=== PATIENT | male | born 1960 | race Caucasian/White ===

== ENCOUNTER 2017-08-10 22:11 | Observation (INO) ==
--- NOTE | 2017-08-10 22:31 | Emergency Department Note ---
Disposition Clinical Impression: Paroxysmal ventricular tachycardia, Sinus tachycardia, Frequent PVCs, Palpitation Disposition: Still a Patient Condition: Fair Forms: ED Satisfaction Letter Arrhythmia/Palpitations HPI - General Chief Complaint: ED Arrhythmia/Palpitations Stated Complaint: "A.Fib" Time Seen by Provider: 08/10/17 22:19 Source: patient, family Limitations: no limitations Nursing Notes Reviewed: Yes Vital Signs Reviewed: Yes - History of Present Illness HPI Narrative: Mr. Ruiz, 57-year-old male, presents from home for evaluation of palpitations. Onset 3 PM today and intermittent. Nothing noted to bring them on or make them resolve. He is followed by the [facility], has history of A. Fib and is s/p ablation, has history of stable V. Tach. Currently on amlodipine 5mg qdaily. PMH: Atrial fibrillation status post ablation. Paroxysmal V. tach. History colon cancer status post chemotherapy (last chemotherapy greater than 1 year ago ). ROS: Positive: As above Negative: Patient denies chest pain or dyspnea. No nausea, vomiting, diaphoresis. - Related Data Allergies Allergy/AdvReac Type Severity Reaction Status Date / Time No Known Allergies Allergy Verified 08/10/17 22:12 All systems ED: reviewed and negative except as stated. Review of Systems: As Per HPI Past Medical History - Past Medical History Medical history: Reports: atrial fibrillation, cancer Psychiatric history: Reports: no psych history - Social History Smoking Status: Never smoker Alcohol use: Reports: rarely Drug use: Reports: none Physical Exam Vital Signs Reviewed General: Patient is alert, oriented, and in no acute distress. HEENT: No facial asymmetry. Head is normocephalic and atraumatic. PERRLA, EOMI. Cardiovascular: Heart regular rate and rhythm without clicks, rubs, gallops, or murmurs. No JVD. PMI nondisplaced. Respiratory: Symmetric chest rise with good respiratory effort. Bilateral breath sounds are clear without wheezing, crackles, or rhonchi. Abdomen: Obese. Bowel sounds present normoactive x-4 quadrants. Abdomen is soft, nondistended, and nontender. No organomegaly noted. Psych: Patient's affect is appropriate for situation. - General Limitations: no limitations General appearance: alert Course Course Narrative: Patient is alert, oriented, conversive. During this time, he is in monomorphic ventricular tachycardia and his only symptom is palpitations. This will spontaneously resolve into sinus tachycardia with PVC. I discussed the patient with on-call cardiology, Dr. Shultz. During our conversation, patient had only recently been resumed and initial 12-lead EKG was not available for our discussion. Given this limited information, she recommends beta yehuda therapy at this time with admission to hospitalist and cardiology following. After my conversation with Dr. Shultz, we were able to finally capture monomorphic ventricular tachycardia on 12-lead EKG with subsequent spontaneous conversion to sinus tachycardia. Will provide IV labetalol. Patient signed out for continued evaluation to my attending, Dr. Abbott. Please see his note for continued evaluation and management. Vital Signs Temperature 98.0 F 08/10/17 22:12 Pulse Rate 115 08/10/17 22:12 Respiratory Rate 16 08/10/17 22:12 Blood Pressure 146/96 08/10/17 22:12 O2 Sat by Pulse Oximetry 98 08/10/17 22:12 Temperature 98.0 F 08/10/17 22:12 Pulse Rate 89 08/10/17 23:24 Respiratory Rate 18 08/10/17 23:24 Blood Pressure 158/117 08/10/17 23:24 O2 Sat by Pulse Oximetry 97 08/10/17 23:24 Oxygen Delivery Oxygen Delivery Nasal Cannula Arrhythmia/Palpitations - Medical Records Medical records reviewed: Yes I reviewed the patient's medical records. - Lab Data Lab results reviewed: Yes I reviewed the patient's lab results. Result diagrams: 08/10/17 22:24 08/10/17 22:24 Lab Results 08/10/17 08/10/17 08/10/17 Range/Units 22:24 22:24 22:24 WBC 11.0 (4.3-11.1) K/mcL RBC 5.34 (4.19-5.50) M/mcL Hgb 15.9 (12.9-16.9) g/dL Hct 47.8 (37.5-50.1) % MCV 89.5 (83.0-100.0) fL MCH 29.8 (28.0-33.3) pg MCHC 33.3 (31.6-35.5) g/dL RDW 13.2 (11.5-14.5) % Plt Count 293 (140-400) K/mcL MPV 10.6 (9.4-12.4) fL Immature Gran % 0.5 (0-4) % Seg Neutrophils % 40.8 % Lymphocytes % 45.8 % Monocytes % 9.1 % Eosinophils % 3.2 % Basophils % 0.6 % Neutrophils # 4.5 (1.6-8.9) K/mcL Lymphocytes # 5.1 H (0.6-4.6) K/mcL Monocytes # 1.0 (0.0-1.3) K/mcL Eosinophils # 0.4 (0.0-0.6) K/mcL Basophils # 0.1 (0.0-0.2) K/mcL PT 9.6 (9.4-12.1) Seconds INR 0.9 APTT 29.5 (26.0-36.0) Seconds Sodium 140 (136-145) mEq/L Potassium 3.6 (3.5-5.1) mEq/L Chloride 105 (98-107) mEq/L Carbon Dioxide 27 (23-29) mEq/L BUN 20 (6-20) mg/dL Creatinine 1.40 H (0.70-1.30) mg/dL Est GFR ( Amer) > 60 (> 60) Est GFR (Non-Af Amer) 52 L (> 60) BUN/Creatinine Ratio 14 (6-26) Glucose 139 H (70-105) mg/dL Calculated Osmolality 295 (280-300) Calcium 9.8 (8.6-10.3) mg/dL Phosphorus 3.6 (2.7-4.5) mg/dL Magnesium 2.2 (1.6-2.6) mg/dL Troponin I (< 0.04) ng/mL TSH 3.250 (0.340-5.600) mcIU/mL 08/10/17 Range/Units 22:24 WBC (4.3-11.1) K/mcL RBC (4.19-5.50) M/mcL Hgb (12.9-16.9) g/dL Hct (37.5-50.1) % MCV (83.0-100.0) fL MCH (28.0-33.3) pg MCHC (31.6-35.5) g/dL RDW (11.5-14.5) % Plt Count (140-400) K/mcL MPV (9.4-12.4) fL Immature Gran % (0-4) % Seg Neutrophils % % Lymphocytes % % Monocytes % % Eosinophils % % Basophils % % Neutrophils # (1.6-8.9) K/mcL Lymphocytes # (0.6-4.6) K/mcL Monocytes # (0.0-1.3) K/mcL Eosinophils # (0.0-0.6) K/mcL Basophils # (0.0-0.2) K/mcL PT (9.4-12.1) Seconds INR APTT (26.0-36.0) Seconds Sodium (136-145) mEq/L Potassium (3.5-5.1) mEq/L Chloride (98-107) mEq/L Carbon Dioxide (23-29) mEq/L BUN (6-20) mg/dL Creatinine (0.70-1.30) mg/dL Est GFR ( Amer) (> 60) Est GFR (Non-Af Amer) (> 60) BUN/Creatinine Ratio (6-26) Glucose (70-105) mg/dL Calculated Osmolality (280-300) Calcium (8.6-10.3) mg/dL Phosphorus (2.7-4.5) mg/dL Magnesium (1.6-2.6) mg/dL Troponin I < 0.03 (< 0.04) ng/mL TSH (0.340-5.600) mcIU/mL - Radiology Data Radiology results reviewed: Yes I reviewed the patient's radiology results. - EKG Data EKG attestation: Yes I reviewed and interpreted this EKG. EKG results narrative: EKG #1 EKG dated 08/10/17 at 22:28 interpreted as sinus tachycardia with frequent monomorphic PVC, rate of 109. Normal intervals ND 175, QRS 129, QT/QTC 339/ 403. Normal axis. No specific ST-T changes. Compared to previous EKG dated which shows sinus rhythm with rare PVCs; no acute ischemic changes of comparison. EKG #2 EKG dated 08/10/2017 at 22:38 interpreted as sinus rhythm with a rate of 110. Right bundle branch block. Left axis. T-wave inversions in precordial leads not present. EKG dated 09/05/2005. Telemetry strip #1 dated 10 Aug 2017 at 22:23 interpreted as sinus rhythm evolving into a 5 second run of monomorphic V. tach followed by sinus rhythm with PVC. During this time, the patient was awake, alert, and conversant. He had no chest pain but did experience palpitations. Telemetry strip #2 dated 10 Aug 2017 at 22:27 shows the 20 second run of monomorphic V. tach. During this time, the patient was awake, alert, and conversant. He had no chest pain but did experience palpitations. EKG #3 EKG dated 08/10/17 at 23:14 interpreted as monomorphic ventricular tachycardia. Patient is awake, alert, conversive; stable. EKG #4 EKG dated 08/10/17 at 23:15 interpreted as sinus tachycardia with a rate of 118 , right bundle branch block, right axis, T-wave inversion in precordial leads. Critical Care Time Critical Care Time: Yes Total Critical Care Time: 45 Attestation: Critical care performed: Time is exclusive of separately billable procedures. Time includes: direct patient care, patient reassessment, coordination of patient care, interpretation of data (laboratory data, radiology data, and respiratory data), review of patient's medical records, medical consultation and documentation of patient care. Procedures included in critical care time: Procedures excluded from critical care time: Attestation Statement - Attestation Attestation: I, Jonah Abbott DO, examined this patient [id number] and my medical decision-making was reviewed with Dr. Reinaldo Doan, Resident Physician. I agree with the documented findings, disposition and treatment plan as described except to the extent set forth below. Please see my progress notes for details. 57-year-old male seen at the time of arrival. Patient presents for cardiac arrhythmia. Has a history of A. fib and ventricular tachycardia that required ablation in the past. His most recent ablation was in 2007. He is currently on amlodipine and losartan. Patient denies any change in medications. Denies any recent illnesses. Denies any chest pain shortness of breath headache vision changes nausea vomiting or diarrhea. Denies any trauma or injury. Patient had onset of symptoms yesterday and intermittent persistent. Yesterday there is an intermittent headache over the last 3 hours she has felt to more consistently. On presentation here patient did have what appeared to be A. fib tendon several episodes of prolonged runs of ventricular tachycardia. Patient was alert oriented and speaking in full sentences with a normal blood pressure and pulse ox throughout all divisions of V. tach. He said even while in V. tach , that he did not want to be shocked and wanted it out because he did feel it go in and out. Immediately cardiology dr. shultz was contacted. He did not have any confirmatory labs or imaging modalities at that point. Initial EKG collected showing sinus rhythm with PVCs. Information was lacking at the time of the conversation but only concern consideration for the consultation initially was starting of medication to help with symptom control that would not inhibit any further evaluation by cardiology interventionalists. Examination that time as a beta yehuda. Labetalol IV drip was started. Patient had screening laboratory workup including magnesium and phosphorus troponin EKG and persistent S. Several EKGs were collected throughout the treatment course. Initial EKG showed a sinus tachycardia with PVCs. Second EKG showed sinus rhythm with possibility of a flutter but otherwise regular rhythm at that point. Patient then had nonsustained run of V. tach this caught on EKG at that time. Patient converted spontaneously back into sinus tachycardia with a rate of 114. Labetalol infusion starting at this time. Labs are been reviewed patient is otherwise stable. Vital signs remained stable throughout the course of care and patient has not had any acute change in mentation or vital signs. Patient will be admitted for definitive management and evaluation will see Dr. workup and imaging modalities are resulted. She detailed documentation of physical exam, medical intervention, medical decision-making and disposition and the resident physician's note [id number] Patient's heart rate is down to ED at this time after the beta yehuda drip was started. Patient's symptoms may be consistent this point with SVT with aberrancy versus intermittent V. tach and atrial flutter or A. fib flutter. Patient family informed. Patient has remained symptom-free here in the emergency room. Labs were reviewed in detail. Hospitalist Dr. hensley and I reviewed the patient's presentation symptoms as well as a consultation with cardiology in detail. No other recommendations are she is now this time. Patient will be admitted for definitive management.
[2017-08-10] MEDS ORDERED: Aspirin 81 MG TAB.CHEW PO STA (22:37)
[2017-08-10 22:39] LABS: Basophils # 0.1 K/mcL (0.0-0.2); Basophils % 0.6 %; Eosinophils # 0.4 K/mcL (0.0-0.6); Eosinophils % 3.2 %; Hematocrit 47.8 % (37.5-50.1); Hemoglobin 15.9 g/dL (12.9-16.9); Immature Granulocytes % 0.5 % (0-4); Lymphocytes # 5.1 K/mcL (0.6-4.6); Lymphocytes % 45.8 %; Mean Corpuscular HGB Conc 33.3 g/dL (31.6-35.5); Mean Corpuscular Hemoglobin 29.8 pg (28.0-33.3); Mean Corpuscular Volume 89.5 fL (83.0-100.0); Mean Platelet Volume 10.6 fL (9.4-12.4); Monocytes % 9.1 %; Neutrophils # 4.5 K/mcL (1.6-8.9); Platelet Count 293 K/mcL (140-400); Red Blood Count 5.34 M/mcL (4.19-5.50); Red Cell Distribution Width 13.2 % (11.5-14.5); Segmented Neutrophils % 40.8 %
[2017-08-10 22:44] LABS: INR 0.9; Prothrombin Time 9.6 Seconds (9.4-12.1)
[2017-08-10] MEDS ORDERED: Labetalol 200 MG in D5% in Water 250 ML IVC SCH (22:45)
[2017-08-10 22:47] LABS: Activated Partial Thrombo Time 29.5 Seconds (26.0-36.0)
[2017-08-10 22:52] LABS: BUN/Creatinine Ratio 14 (6-26); Blood Urea Nitrogen 20 mg/dL (6-20); Calcium 9.8 mg/dL (8.6-10.3); Carbon Dioxide 27 mEq/L (23-29); Chloride 105 mEq/L (98-107); Glucose 139 mg/dL (70-105); Osmolality,Calculated 295 (280-300); Potassium 3.6 mEq/L (3.5-5.1); Sodium 140 mEq/L (136-145); eGFR For African Americans > 60 (> 60); eGFR For Non-African Americans 52 (> 60)
[2017-08-10 23:12] LABS: Magnesium 2.2 mg/dL (1.6-2.6); Phosphorous 3.6 mg/dL (2.7-4.5)
[2017-08-10 23:30] LABS: Bilirubin,Urine Negative (Negative); Blood,Urine Negative (Negative); Clarity,Urine Clear (Clear); Color,Urine Yellow (Yellow); Glucose,Urine (UA) 100 mg/dL (Normal); Ketones,Urine Negative (Negative); Leukocyte Esterase,Urine Negative (Negative); Nitrite,Urine Negative (Negative); PH,Urine 6.5 pH Units (5.0-8.0); Protein,Urine Negative (Neg-Trace); Specific Gravity,Urine 1.019 (1.010-1.025); Urobilinogen,Urine Normal (Normal)
[2017-08-11] MEDS ORDERED: Naloxone 0.4 MG/ML INJ IVP PRN (01:16)
[2017-08-11] MEDS ORDERED: Acetaminophen 325 MG TABLET PO PRN (01:16)
[2017-08-11] MEDS ORDERED: *HR* Midazolam HCl 5 MG/5 ML VIAL IVP ONE (01:22)
--- NOTE | 2017-08-11 03:32 | Internal Med History&Physical ---
Date of Encounter: 08/11/17 Time of Encounter: 00:30 Assessment and Plan (1) HTN (hypertension) Current visit: Yes Status: Acute Cont home meds. Closely monitor BP. Qualifiers: Hypertension type: essential hypertension Qualified Code(s): I10 - Essential (primary) hypertension (2) A-fib Current visit: Yes Status: Acute Pt said he has A Fib and s/p ablation. Not sure what home meds for A Fib, his will bring med list to us soon. Qualifiers: Atrial fibrillation type: paroxysmal Qualified Code(s): I48.0 - Paroxysmal atrial fibrillation (3) DVT prophylaxis Current visit: Yes Status: Acute Heparin SC (4) Paroxysmal ventricular tachycardia Current visit: Yes Status: Acute Not sure if it is new. Converted to sinus now. - Place pt on continuous cardiac monitoring. - Mg and TSH WNL. - Labetalol drip as needed per cardio - Consult cardiology in AM. (5) Frequent PVCs Current visit: Yes Status: Acute Keep beta blockers. (6) Palpitation Current visit: Yes Status: Acute Probably due to VT. Management as above. Internal Medicine - H&P: HPI Chief complaint: Palpitation Admitted From: Home Plans for Post Hospital Care: Home History of present illness: Mr. Ruiz is a 57 year old male with Hx of PAF s/p ablation present to ER for palpitation. Pt said he feels palpitation this evening after he shovelled snow from drive way. He knows he has A Fib and had similiar symptoms previously. Usually some rest will brings him back to normal. He has rest for a while but symptoms not go away. He came to ER for further management. Pt denies chest pain. Has mild SOB, had light headed and almost pass out. Denies nausea. In ER, EKG shows short V tach. Cardio consult called and recommended to place pt on labetalol drip. Pt's HR changed to and remains at sinus after treatment. 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 Pt is not clear if he has hx of VT. Past Med Surg Social Fam HX - Past Medical History Medical history: atrial fibrillation, cancer, hypertension Psychiatric history: no psych history - Past Surgical History Surgical History: colectomy - Social History Smoking Status: Never smoker Smokeless Tobacco Status: No Alcohol use: occasionally Drug use: none - Family History Father Living Status: Hx Family Cardiac Disorders: Yes ([place]) Brother Hx Family Cardiac Disorders: Yes (Heart valve replacement) Sister Hx Family Cardiac Disorders: Yes (AFib) Internal Medicine - H&P: Meds Losartan Potassium [Cozaar] 100 mg PO DAILY 08/11/17 [History] amLODIPine [Norvasc] 5 mg PO DAILY 08/11/17 [History] 3 Allergy/AdvReac Type Severity Reaction Status Date / Time No Known Allergies Allergy Verified 08/10/17 22:12 All Systems PM: A 10-system review of systems was performed and is negative for pertinent findings except as documented above in the HPI. - Constitutional Vitals: Temp Pulse Resp BP Pulse Ox 98.1 F 65 16 123/81 98 08/11/17 02:38 08/11/17 02:38 08/11/17 02:38 08/11/17 02:38 08/11/17 02:38 General appearance: Present: A&O X 3, no acute distress, answers questions appropriately - Head Head exam: Present: atraumatic, normocephalic - Eye Eye exam: Present: PERRL, conjuntiva pink, sclera anicteric Pupils: Present: PERRL - Neck Neck exam general surgery: Present: supple, trachea midline. Absent: lymphadenopathy - Respiratory Respiratory exam: Present: CTAB. Absent: accessory muscle use, rales, rhonchi, wheezes - Cardiovascular Cardiovascular exam: Present: RRR, +S1, +S2. Absent: diastolic murmur, gallop, rubs, systolic murmur - GI/Abdominal GI/Abdominal exam: Present: normal bowel sounds, soft, no peritoneal signs. Absent: distended, tenderness - Extremities Exam Extremities exam: Present: warm, radial pulses palpable and symmetrical. Absent : calf tenderness, cyanotic, pedal edema - Neurological Exam Neurological exam: Present: CN II-XII intact, oriented X3, no focal deficits. Absent: pronater drift, facial droop, speech deficit - Skin Skin exam: Present: dry, intact Internal Med - H&P Results - Labs CBC & Chem 7: 08/10/17 22:24 08/10/17 22:24 - EKG Data -: EKG Interpreted by Myself EKG shows normal: sinus rhythm Rate: normal
[2017-08-11 04:13] LABS: Basophils # 0.1 K/mcL (0.0-0.2); Basophils % 0.8 %; Eosinophils # 0.2 K/mcL (0.0-0.6); Eosinophils % 2.8 %; Hematocrit 41.5 % (37.5-50.1); Immature Granulocytes % 0.3 % (0-4); Lymphocytes # 2.7 K/mcL (0.6-4.6); Lymphocytes % 37.1 %; Mean Corpuscular Hemoglobin 29.8 pg (28.0-33.3); Mean Corpuscular Volume 90.2 fL (83.0-100.0); Mean Platelet Volume 10.7 fL (9.4-12.4); Monocytes # 0.7 K/mcL (0.0-1.3); Monocytes % 9.3 %; Neutrophils # 3.6 K/mcL (1.6-8.9); Platelet Count 228 K/mcL (140-400); Red Cell Distribution Width 13.3 % (11.5-14.5); Segmented Neutrophils % 49.7 %
[2017-08-11 04:15] LABS: Hemoglobin 13.7 g/dL (12.9-16.9)
[2017-08-11 04:19] LABS: Hemoglobin A1C 5.6 %
[2017-08-11 04:40] LABS: BUN/Creatinine Ratio 16 (6-26); Blood Urea Nitrogen 21 mg/dL (6-20); Carbon Dioxide 25 mEq/L (23-29); Chloride 108 mEq/L (98-107); Glucose 104 mg/dL (70-105); Magnesium 2.1 mg/dL (1.6-2.6); Osmolality,Calculated 301 (280-300); Potassium 3.7 mEq/L (3.5-5.1); Sodium 144 mEq/L (136-145); eGFR For African Americans > 60 (> 60); eGFR For Non-African Americans 56 (> 60)
[2017-08-11] MEDS: *HR* Heparin 5,000 UNIT/ML VIAL SQ SCH ×2 (06:35→18:33)
[2017-08-11] MEDS: Metoprolol XL (24 HR) Succ 25 MG TAB.ER.24H PO SCH (09:45)
[2017-08-11] MEDS: amLODIPine 5 MG TABLET PO SCH (09:45)
--- NOTE | 2017-08-11 09:51 | Pre-Sedation Evaluation ---
Pre-sedation evaluation - Pre-sedation checklist Date of procedure: 08/11/17 Procedure: [facility] Recent Vitals: Last Vital Signs Temp 97.8 F 08/11/17 04:25 Pulse 68 08/11/17 04:25 Resp 18 08/11/17 04:25 BP 126/88 08/11/17 04:25 Pulse Ox 98 08/11/17 04:25 H&P (including ROS) documented in medical record: Yes Previous reaction to sedatives/anesthetics: No Dietary Status: NPO after Midnight Airway Assessment: Patient can open mouth completely, TMJ function normal ASA Classification *see protocol: CLASS II-Mild systemic disease Plan of Care: Pt appropriate candidate for procedure/moderate/conscious sedation , Risks/benefits of procedure/sedation discussed w/ patient/family
--- NOTE | 2017-08-11 10:56 | Cardiology Consult Note ---
Date of Encounter: 08/11/17 Time of Encounter: 08:30 Assessment and Plan (1) Paroxysmal ventricular tachycardia Current Visit: Yes Status: Acute Per cardiology: -Ventricular tachycardia noted on ECG and telemetry strips. Reviewed with . -No VT noted on tele overnight. -Denies chest pain. -Troponin negative. -TTE pending. -Will start po beta yehuda. -Keep NPO. -PLan for LHC today. Risks versus benefits of LHC explained to patient. Patient states understanding and agrees with plan. OF note, creatinine 1.32, unknown baseline. (2) A-fib Current Visit: Yes Status: Acute Per cardiology: -Knowm history of a.fib s/p ablation x2. -No atrial fibrillation appreciated per tele or ECG. -[id number] score 1 (HTN). On ASA at home. -On beta yehuda. -Will restart patient's beta yehuda. 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 Qualifiers: Atrial fibrillation type: paroxysmal Qualified Code(s): I48.0 - Paroxysmal atrial fibrillation Discussion w patient/family: The assessment and plan as outlined above was discussed with the patient who expressed understanding and agreement. All questions were answered. Thank you for involving us in the care of your patient. Please call with any questions. Discussed and reviewed with . History of Present Illness Consult date: 08/11/17 Requesting physician: Nhan Kurtz Consult reason: arrythmia Chief complaint: "heart racing" near syncope History of present illness: Mr. Ruiz is a 57 year old male with a relevant past medical history of atrial fibrillation s/p a.fib ablation x2, HTN, hyperlipidemia. Patient reports he has previous LHC 10 years ago with "no blockages." Patient presented to [facility] with complaints of "heart racing." Patient states he felt exactly like he did when he was in a.fib, however this time he felt like he might "pass out," Patient denies syncope. Patient denies chest pain. Patient states heart racing symptoms started on Thursday while he was out shoveling snow. Patient denies current symptoms. Past Med Surg Social Fam HX - Past Medical History Attestation: Yes The following information was validated with the patient. Source: patient, old records reviewed Medical history: atrial fibrillation, cancer, hypertension Psychiatric history: no psych history - Past Surgical History Surgical History: colectomy - Social History Smoking Status: Never smoker Smokeless Tobacco Status: No Alcohol use: occasionally Drug use: none - Family History Father Living Status: Hx Family Cardiac Disorders: Yes ([place]) Brother Hx Family Cardiac Disorders: Yes (Heart valve replacement) Sister Hx Family Cardiac Disorders: Yes (AFib) Medications and Allergies Aspirin [Lo-Dose Aspirin EC] 81 mg PO DAILY 08/11/17 [History] Losartan/Hydrochlorothiazide [Losartan-Hctz 100-12.5 mg Tab] 1 tab PO DAILY [History] amLODIPine [Norvasc] 5 mg PO DAILY 08/11/17 [History] 3 Allergy/AdvReac Type Severity Reaction Status Date / Time No Known Allergies Allergy Verified 08/10/17 22:12 All Systems Review: A 10-system review of systems was performed and is negative for pertinent findings except as documented above in the HPI. - Cardiovascular Cardiovascular: as per HPI, rapid heart rate - Neurological Neurological: other (Near syncope) Physical Examination Vital Signs Temperature 98.0 F 08/10/17 22:12 Pulse Rate 115 08/10/17 22:12 Respiratory Rate 16 08/10/17 22:12 Blood Pressure 146/96 08/10/17 22:12 O2 Sat by Pulse Oximetry 98 08/10/17 22:12 Temperature 97.8 F 08/11/17 04:25 Pulse Rate 68 08/11/17 04:25 Respiratory Rate 18 08/11/17 04:25 Blood Pressure 126/88 08/11/17 04:25 O2 Sat by Pulse Oximetry 98 08/11/17 04:25 Oxygen Delivery Oxygen Delivery Nasal Cannula General: Conversant, No Apparent Distress HEENT: Atraumatic, Normocephaly, Mucus Membranes Moist Neck: No JVD, Normal carotid pulses Cardiac: Reg Rate and Rhythm, Normal S1 and S2, No Murmur Lungs: Normal Breath Sounds, No Wheeze, Rales, Rhonchi Neuro: Alert and responsive, No focal deficits noted Abdomen: Soft, Non-Tender Skin: No rashes noted on visualized skin Musculoskeletal: No Chest Wall Tenderness Extremities: No Clubbing, No Cyanosis, No Edema, Normal Pulses Results 08/11/17 03:34 08/11/17 03:34 Lab Results Impressions Chest X-Ray 08/10/17 22:20 IMPRESSION: No acute cardiopulmonary disease. D/ / Tay Santiago MD / Tay Santiago MD Interpreting Provider: Tay Santiago MD Active Medications Acetaminophen (Tylenol) 650 mg PO Q6HR PRN PRN Reason: Mild Pain (1-3) Stop: 02/10/18 01:17 Amlodipine Besylate (Norvasc) 5 mg PO DAILY KACIE PRN Reason: Protocol Stop: 02/10/18 09:01 Last Admin: 08/11/17 09:45 Dose: 5 mg Heparin Sodium (Porcine) (Heparin) 5,000 unit SQ Q12HCO [facility] Stop: 02/10/18 06:01 Last Admin: 08/11/17 06:35 Dose: 5,000 unit Losartan Potassium (Cozaar) 100 mg PO DAILY [facility] Stop: 02/10/18 09:01 Last Admin: 08/11/17 09:45 Dose: 100 mg Metoprolol Succinate (Toprol Xl) 25 mg PO DAILY [facility] Stop: 02/10/18 09:31 Last Admin: 08/11/17 09:45 Dose: 25 mg Naloxone HCl (Narcan) 0.4 mg IVP Q2MIN PRN PRN Reason: Opioid Reversal Stop: 02/10/18 01:17 Laboratory Tests 08/10/17 08/10/17 08/10/17 22:24 22:24 22:24 Hgb 15.9 Potassium Creatinine 1.40 H Magnesium Troponin I < 0.03 TSH 3.250 08/11/17 08/11/17 03:34 03:34 Hgb 13.7 D Potassium 3.7 Creatinine 1.32 H Magnesium 2.1 Troponin I TSH - Imaging and Cardiology Chest Xray: report reviewed Echo: pending - EKG Interpretation EKG results cardiology: personally reviewed (ECG with ventricular tachycardia noted.), other (Telemetry reviewed with average HR previous 12 hours noted to be 64, SR. 5 single PVCs noted. PACs noted.) Consult Discharge Plan - Plan Referrals: Desean Jones DO [Family Provider] - [facility] [Primary Care Provider[facility] - 08/21/17 9:45 am
--- NOTE | 2017-08-11 11:14 | Electrocardiograph Report ---
[address] [place], [place] [address] Test Date: 2017-08-10 Pat Name: Donnie Ruiz Department: 102 Room: 2N11 Gender: M Booky: [facility] : 1960 Requested By: Reinaldo Doan Order Number: [id number] Reading MD: Ward Bernard MD Measurements Intervals [place] Rate: 109 P: 41 MI: 175 QRS: -19 QRSD: 129 T: 23 QT: 339 QTc: 403 Interpretive Statements SINUS TACHYCARDIA WITH FREQUENT VENTRICULAR PREMATURE COMPLEXES RIGHT BUNDLE BRANCH BLOCK Electronically Signed On 08-11-2017 11:13:06 EST by Ward Bernard MD
--- NOTE | 2017-08-11 11:14 | Electrocardiograph Report ---
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
[2017-08-11] MEDS: 0.9 % Sodium Chloride 1,000 ML IVC SCH (12:46)
[2017-08-11] MEDS: Aspirin Enteric Coated 81 MG Tablet PO SCH (12:53)
--- NOTE | 2017-08-11 13:57 | Electrocardiograph Report ---
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
[2017-08-11] MEDS ORDERED: *HR* Heparin 10,000 UNIT/10 ML VIAL ONE (15:07)
[2017-08-11] MEDS ORDERED: Heparin 1,000 UNITS/500 mL 500 ML ONE (15:07)
[2017-08-11] MEDS ORDERED: 0.9 % Sodium Chloride 1,000 ML ONE ×2 (15:07→15:52)
[2017-08-11] MEDS ORDERED: Verapamil 5 MG/2 ML VIAL ONE ×2 (15:07→16:03)
[2017-08-11] MEDS ORDERED: Nitroglycerin 1,000 MCG/10 ML VIAL IV ONE ×2 (15:07→16:01)
[2017-08-11] MEDS ORDERED: *HR* FentaNYL (PF) 100 MCG/2 ML VIAL ONE (15:58)
[2017-08-11] MEDS ORDERED: *HR* Midazolam HCl 2 MG/2 ML VIAL ONE (15:58)
--- NOTE | 2017-08-11 16:44 | Invasive Diagnostic Lab Proc ---
Name: Donnie Ruiz Date of Study: 08/11/2017 Date: 1960 Ht: 70.9in Medical Record#: [id number] Age: 57 Wt: 222.67lb Gender: Male BSA: 2.2 Order #: [id number] BMI: 31.17 Physicians Procedure Physician: Ward Bernard MD, [facility] Referring MD: Referring MD: Staff Name Position Time In Preston Parra RT (R) Scrub 04:04 PM Preethi Burns RN Monitor 04:04 PM Cherelle Salvador RN Strategic Intelligence Officer 04:04 PM Indications Indication v-tach Procedures Performed Procedure L HRT ARTERY/VENTRICLE ANGIO Pre-Procedure Checklist Informed consent is complete signed and on chart. H&P is on chart. ID band is on and ID verified with patient. Patient NPO for procedure The procedure was described for the patient and questions were answered. Blood Pressure: 134/89 ECG is on chart. Rhythm: NSR Plan of Care Patient will tolerate the procedure without complications. Adequate level of comfort will be maintained. Hemodynamics will remain stable Patient will recover from procedure without complications. Respiratory function will be maintained. Cardiac rhythm will remain stable. Patient temperature will be maintained. Patient and/or family have verbalized understanding of the procedure. Patient Education Chief Complaint/Reason for Test: Cardiac Cath Developmental Category: Adult (18-64 years) Developmentally Appropriate for Age: Yes Learning Barriers: None Education Needs: Procedure Education Method: Verbal Information Taught: Cardiac Cath Educational Evaluation: Able to repeat information Intravenous Access Time IV Size Location DC'd Fluid/Drip Rate Units RN 04:09 PM 18g 1 14" Patent On Arrival Rt Antecubital 0.9NaCl 25 ml/hr Cherelle Salvador RN 04:09 PM 18g 1 1/4" Patent On Arrival Lt Antecubital Allergies NKDA No Known Allergies Vital Signs Time BP (mmHg) HR (bpm) O2 Sat. RR (bpm) LOC 04:04 PM 134 / 89 66 97 % 16 5 = Fully awake and oriented or at pre-proc level 03:57 PM 160 / 99 69 100 % 04:02 PM 159 / 94 68 100 % 16 04:07 PM 139 / 88 67 97 % 20 04:12 PM 137 / 81 71 96 % 17 04:17 PM 124 / 81 63 93 % 23 04:22 PM 135 / 81 66 95 % 37 Procedural Medications Time Medication Dose Units Method Given By 04:04 PM Oxygen 2 L/min nasal cannula Cherelle Salvador RN 04:04 PM Versed 2 mg Intravenous Cherelle Salvador RN 04:04 PM Fentanyl 50 mcg Intravenous Cherelle Salvador RN 04:08 PM Lidocaine 2% 0.5 ml Subcutaneous Ward Bernard MD, [facility] 04:12 PM Heparin 4000 units Nitroglycerin 200 mcg Verapamil 2.5 mg Intraarterial Ward Bernard MD, [facility] ASA Classification: CLASS II- Mild systemic disease (i.e. well-controlled diabetes, hypertension, asthma, cigarette smoking) Syed Score Preprocedure Postprocedure Activity 2- Moves 4 extremities sustained head lift Activity 2- Moves 4 extremities sustained head lift Circulation 2- SBP +/= 20 points of pre-anesthetic level Circulation 2- SBP +/= 20 points of pre-anesthetic level Consciousness 2- Awake and alert oriented x 3 Consciousness 2- Awake and alert oriented x 3 O2 Saturation 2- Able to maintain O2 satruation of 92% on room air O2 Saturation 2- Able to maintain O2 satruation of 92% on room air Respiratory 2- Able to deep breathe and cough well Respiratory 2- Able to deep breathe and cough well Total Score 10 Total Score 10 Contrast Agent: Isovue Diagnostic Contrast: 55 ml Total Contrast: 55 ml Fluoro Dose: 178 mGy Procedure Log Time Note Enter By 03:56 PM Vitals capture started with the following parameters, Patient=Adult, Interval=5 min, Initial Bkbohvxj=754 mmHg, Deflation Rate=5 mmHg, Cuff placed on Left Arm 03:57 PM HR=69 bpm, FWEC=838/99 mmhg, GwK5=464.0 %, Comment=sr w bbb 04:02 PM HR=68 bpm, SCNW=197/94 mmhg, IfW7=297.0 %, Resp=16 B/min 04:03 PM CathStat 04:03 PM Pt arrived to labor supervisor 2 at 16:03 scoates 04:03 PM Physician arrived 16:03 scoates 04:03 PM ASA Class CLASS II- Mild systemic disease (i.e. well-controlled diabetes, hypertension, asthma, cigarette smoking) scoates 04:04 PM Meet and greet completed scoates 04:04 PM Sign in performed according to hospital policy. scoates 04:04 PM Procedure start 16:04 scoates 04:04 PM Time: 16:04 Oxygen on at 2 L/min per nasal cannula by Cherelle Salvador RN scoates 04:04 PM Time: 16:04 Patient comfortable and pain free: Yes scoates 04:04 PM Time: 16:04LOC: 5 = Fully awake and oriented or at pre-proc level scoates 04:04 PM Time: 16:04 Versed 2 mg Intravenous Given by Cherelle Salvador RN scoates 04:04 PM Time: 16:04 Fentanyl 50 mcg Intravenous Given by Cherelle Salvador RN scoates 04:04 PM Patient charges- Angio tray pack, Navilyst 3mm J, Pulse Oximetry and ACIST tubing and transducer scoates 04:04 PM Preston Parra RT (R) Position: Scrub Time in: 16:04 scoates 04:04 PM Preethi Burns RN Position: Monitor Time in: 16:04 scoates 04:05 PM Cherelle Salvador RN Position: Strategic Intelligence Officer Time in: 16:04 scoates 04:05 PM Case Delayed No, inpatient scoates 04:05 PM Clinical Presentation: Unstable angina scoates 04:07 PM HR=67 bpm, VHOL=832/88 mmhg, SpO2=97.0 %, Resp=20 B/min, Comment=sr w bbb 04:08 PM Time out performed according to hospital policy scoates 04:08 PM Time: 16:08 0.5 ml Lidocaine 2% to right radial Subcutaneous Given by Ward Bernard MD, [facility] scoates 04:10 PM Pressure channel 1 zeroed. 04:10 PM Pressure channel 1 zeroed. 04:11 PM Access obtained by percutaneous puncture. 6Fr 11cm Terumo Glidesheath sheath placed in right Radial artery. [id number] scoates 04:12 PM Time: 16:12 Patient given 4,000 units Heparin, 200 mcg Nitroglycerin, and 2.5 mg Verapamil Intraarterial by Ward Bernard MD, [facility]. This is given to reduce risk of vessel spasm and thrombosis. scoates 04:12 PM 5Fr TIG catheter inserted over the wire [facility] scoates 04:12 PM HR=71 bpm, KDAO=479/81 mmhg, SpO2=96.0 %, Resp=17 B/min, Comment=sr w bbb 04:13 PM Recorded Pressure: Ao, HR=69, Condition=Condition 1 (Aorta) Ao 100/75/88 04:15 PM RCA angiography performed in multiple views. scoates 04:15 PM Coronary Dominance: right scoates 04:15 PM catheter repositioned to LCA scoates 04:15 PM LCA angiography performed in multiple views. scoates 04:15 PM Catheter removed scoates 04:15 PM 5Fr Pigtail catheter inserted over the wire DNC scoates 04:17 PM Recorded Pressure: LV, HR=69, Condition=Condition 1 (Left Ventricle) LV 98/-1/5 04:17 PM Catheter selectively placed in left ventricle scoates 04:17 PM Bolus angiogram of left Ventricle complete: 12 ml/sec for a total of 30 mls scoates 04:17 PM HR=63 bpm, SXTG=438/81 mmhg, SpO2=93.0 %, Resp=23 B/min 04:19 PM Catheter removed scoates 04:19 PM Procedure completed at 16:19 scoates 04:19 PM Sign out completed: Radiation Dose 178 mGy Fluoro Time: 1.1 Isovue 370 - 200ml contrast 55 ml given by Ward Bernard MD, [facility]. Complications: NoneCardiac Rehab Consult needed: YesConfirmed administered medications: Yes scoates 04:19 PM Isovue 370 - 200ml,1 Bottle(s) used. scoates 04:19 PM Arterial sheath pulled, Vasc Band closure device used and was Successful S/N. scoates 04:19 PM 11 ml air in Vasc Band. scoates 04:20 PM Estimated Blood Loss: minimal scoates 04:20 PM Post ECG NSR scoates 04:20 PM Post Blood Pressure 124/81 scoates 04:20 PM 16:20 Post Pulses Rt Radial 1+ scoates 04:20 PM Information taught Cardiac Cath and Vasc Band scoates 04:20 PM Education needs Procedure, Plan of Care, and Responsibilities of Patient in Care scoates 04:20 PM Learning barriers :None scoates 04:20 PM Education evaluation Able to repeat information scoates 04:20 PM Site status No bleeding/hematoma - Rt Wrist as reported by Preston Parra RT (R) at 16:20 scoates 04:21 PM Plavix, Effient or Brilinta given No scoates 04:21 PM Delay to floor No scoates 04:21 PM Family placed in consult room. scoates 04:21 PM Complications: None scoates 04:22 PM HR=66 bpm, ZFFA=492/81 mmhg, SpO2=95.0 %, Resp=37 B/min 04:22 PM Lesion found in Mid LAD. Pre Stenosis: 20 Pre GAMAL Flow: scoates 04:22 PM Lesion found in Mid RCA. Pre Stenosis: 15 Pre GAMAL Flow: scoates 04:22 PM Mid/Distal Left Anterior Descending Coronary Artery and diagonal branches with 20% stenosis. If graft is supplying this area, 0 % stenosis scoates 04:23 PM Right Coronary, Right Posterior Descending Arteries with Right Posterolateral and Acute Marginal branches with 15 % stenosis. If graft is supplying this area, 0 % stenosis scoates 04:27 PM Report given to Chapin SHIPLEY Pt taken to 2N Room #11. 16:27 scoates Complications Complication None None Hemodynamics Pressures Site Systolic/A Wave Diastolic/V Wave Mean AO 100 75 88 LV 98 -1 5 Post Procedure Information Blood Pressure: 124/81 mmHg Rhythm: NSR Post procedural instructions were given Closure Device Time Device Success/Fail 08/11/2017 4:23:00 PM Mechanical Compression Successful Site Checks Time Location Status Staff Sheath In? Note 04:20 PM Rt Wrist No bleeding/hematoma Preston Parra RT (R) Pulses Time Site Pre-Procedure Post-Procedure Note 08/11/2017 4:10:00 PM Bilateral DP & PT 1+ 08/11/2017 4:10:00 PM Bilateral radial 2+ 4:20:00 PM Rt Radial 1+ Updated by Preethi Lopez RN on 08/11/2017 4:36:02 PM electronically signed on 08/11/2017 4:37:45 PM with status of Final
--- NOTE | 2017-08-11 20:46 | Event Note ---
Date of Encounter: 08/11/17 Time of Encounter: 16:00 Patient presented to the hospital yesterday due to lightheadedness, feeling faint after exertion. He was found to have episodes of ventricular tachycardia. On exam he is in no acute distress. Heart is regular. Lungs are clear. Abdomen is soft. He was evaluated status post cardiac catheterization which found nonobstructive CAD. Plan: Continue with cardiac monitoring. Monitor and replete electrolytes. Follow-up with cardiology. He mayl need an EP study.
[2017-08-12] MEDS: 0.9 % Sodium Chloride 1,000 ML IVC SCH (04:04)
[2017-08-12] MEDS: *HR* Heparin 5,000 UNIT/ML VIAL SQ SCH ×2 (05:27→17:18)
[2017-08-12 06:09] LABS: Basophils % 0.6 %; Eosinophils # 0.3 K/mcL (0.0-0.6); Eosinophils % 3.9 %; Hematocrit 40.7 % (37.5-50.1); Hemoglobin 13.2 g/dL (12.9-16.9); Immature Granulocytes % 0.3 % (0-4); Lymphocytes # 2.5 K/mcL (0.6-4.6); Lymphocytes % 36.2 %; Mean Corpuscular HGB Conc 32.4 g/dL (31.6-35.5); Mean Corpuscular Hemoglobin 29.5 pg (28.0-33.3); Mean Corpuscular Volume 90.8 fL (83.0-100.0); Mean Platelet Volume 10.1 fL (9.4-12.4); Monocytes # 0.6 K/mcL (0.0-1.3); Monocytes % 8.6 %; Neutrophils # 3.5 K/mcL (1.6-8.9); Platelet Count 192 K/mcL (140-400); Red Blood Count 4.48 M/mcL (4.19-5.50); Red Cell Distribution Width 13.3 % (11.5-14.5); Segmented Neutrophils % 50.4 %
[2017-08-12 06:21] LABS: BUN/Creatinine Ratio 13 (6-26); Blood Urea Nitrogen 13 mg/dL (6-20); Calcium 8.4 mg/dL (8.6-10.3); Carbon Dioxide 26 mEq/L (23-29); Chloride 108 mEq/L (98-107); Glucose 96 mg/dL (70-105); Osmolality,Calculated 286 (280-300); Potassium 3.9 mEq/L (3.5-5.1); Sodium 138 mEq/L (136-145); eGFR For African Americans > 60 (> 60); eGFR For Non-African Americans > 60 (> 60)
[2017-08-12] MEDS: Metoprolol XL (24 HR) Succ 25 MG TAB.ER.24H PO SCH (08:57)
[2017-08-12] MEDS: amLODIPine 5 MG TABLET PO SCH (08:57)
[2017-08-12] MEDS: Aspirin Enteric Coated 81 MG Tablet PO SCH (08:57)
--- NOTE | 2017-08-12 09:03 | Internal Med Progress Note ---
Date of Encounter: 08/12/17 Time of Encounter: 09:00 - Assessment and plan (1) Paroxysmal ventricular tachycardia Current Visit: Yes Status: Acute Assessment and plan: Patient had cardiac catheterization yesterday, showed normal EF and the minimal coronary artery disease no intervention required. [employer] is planning do EP study today. (2) Palpitation Current Visit: Yes Status: Acute Assessment and plan: Palpation is most likely from multiple PVCs and V. tach, improved and with beta Keny (3) HTN (hypertension) Current Visit: Yes Status: Acute Assessment and plan: Well controlled continue home medication amlodipine 5 mg and losartan Qualifiers: Hypertension type: essential hypertension Qualified Code(s): I10 - Essential (primary) hypertension (4) A-fib Current Visit: Yes Status: Acute Assessment and plan: Patient has history of atrial fibrillation status post ablation. he was not on beta Keny before admission Qualifiers: Atrial fibrillation type: paroxysmal Qualified Code(s): I48.0 - Paroxysmal atrial fibrillation (5) DVT prophylaxis Current Visit: Yes Status: Acute Assessment and plan: On heparin subcutaneous 5000 units twice a day - Time Spent With Patient Possible discharge tomorrow morning if national account director is okay 25 - 35 minutes - Subjective Interval history: Mr. Ruiz is a 57 year old male with Hx of PAF s/p ablation present to ER for palpitation. Pt denies chest pain. Has mild SOB, had light headed and almost pass out. Denies nausea. In ER, EKG shows short V tach. Cardio consult called Patient had a cardiac catheterization yesterday showed normal EF 60% there is a minimal two-vessel coronary artery disease. no intervention. Cardiology recommended aggressive risk factor modification. Patient is doing very well, overnight no recurrent palpation. He is currently nothing by mouth waiting for EP studies today. Lab studies reviewed ionized 1.0 normal potassium and magnesium. - Constitutional Vitals: Temp Pulse Resp BP Pulse Ox 98 F 60 19 134/88 97 08/12/17 07:16 08/12/17 07:16 08/12/17 07:16 08/12/17 07:16 08/12/17 07:16 General appearance: Present: A&O X 3, no acute distress, answers questions appropriately Exam: CONSTITUTIONAL: patient appears as an age appropriate male in no acute distress. EYES Clear sclerae, bilateral pupils are equal, reactive to light. EMOI. RESPIRATORY: No accessory muscle use, bilateral clear to auscultation, no wheezing, no crackles/rales. CARDIOVASCULAR: Regular heart rate, normal S1 and S2, no murmurs GASTROINTESTINAL: bowel sounds present, soft, no tenderness. MUSCULOSKELETAL: Joints in normal range of motion, no clubbing, no edema, no cyanosis. Bilateral peripheral pulses 2+. NEUROLOGIC: CN II to XII are grossly intact, no focal neurological deficit. Internal Medicine: Result - Labs CBC & Chem 7: 08/12/17 06:00 08/12/17 06:00 Labs: Short CBC 08/12/17 Range/Units 06:00 WBC 6.9 (4.3-11.1) K/mcL Hgb 13.2 (12.9-16.9) g/dL Hct 40.7 (37.5-50.1) % Plt Count 192 (140-400) K/mcL Neutrophils # 3.5 (1.6-8.9) K/mcL BMP 08/12/17 06:00 Sodium 138 Potassium 3.9 Chloride 108 H Carbon Dioxide 26 BUN 13 Creatinine 1.03 Glucose 96 Calcium 8.4 L - ABG Interpretation ABG results: PT/INR, D-dimer PT 9.6 Seconds (9.4-12.1) 08/10/17 22:24 - Impressions Impressions Echocardiogram 08/11/17 01:23 Impressions: LVEF 55-60%. Mild left ventricular diastolic dysfunction. Normal right ventricular structure and function. No significant valvular dysfunction. No pulmonary hypertension. Left Ventricular Wall Motion: Rest Echo Findings All wall segments showed normal motion. Findings: Study Quality * Technically adequate exam. ECG Findings * Normal sinus rhythm. Left Ventricle * LVEF 55-60%. * Mild left ventricular diastolic dysfunction. * Normal LV size and wall thickness. Right Ventricle * Normal right ventricular structure and function. Left Atrium * Mild to moderately dilated left atrium. Right Atrium * Normal right atrial size. Aortic Valve * No aortic regurgitation. * Trileaflet aortic valve. * No aortic stenosis. Mitral Valve * Normal mitral valve structure. * No mitral stenosis. * Trace mitral regurgitation. Tricuspid Valve * Normal tricuspid valve structure. * Trace tricuspid regurgitation. * Estimated RA pressure is 3 mmHg. * Estimated RVSP is 19 mmHg. * No pulmonary hypertension. Pulmonic Valve * Pulmonic valve is not well visualized. * No pulmonic stenosis. * No pulmonic regurgitation. Pulmonary Artery * Pulmonary artery not well visualized. Aorta * Normally sized aortic root. Pericardium * There is no pericardial effusion present. Interatrial Septum * No evidence of PFO by color Doppler. IVC * Normal IVC dimensions and inspiratory collapse. Consult Discharge Plan - Plan Referrals: Desean Jones DO [Family Provider] - [facility] [Primary Care Provider] - 08/21/17 9:45 am
--- NOTE | 2017-08-12 12:10 | Electrophysiology Consult Note ---
<Shannon Gleason - Last Filed: 08/12/17 12:25> Date of Encounter: 08/12/17 Time of Encounter: 09:30 Assessment and Plan (1) Paroxysmal ventricular tachycardia Status: Acute Per cardiology: -Ventricular tachycardia noted on ECG and telemetry strips from ER. -No VT noted on tele overnight. ON beta yehuda. -Of note, patient denied history of ventricular tachcyardia, howerver per EP records from [place] 2009, patient underwent successful VT ablation. -Denies chest pain. -Troponin negative. -TTE with LVEF 55-60%, no segmental wall motion abnormalities. -LHC yesterday with 20% mid lad, 15% mid RCA. -Will discuss and review with Dr.John Conte. Of note, discussed possible ICD with patient, patient adamently refuses. Updated on if ICD recommended, and declines, would be at increased risk of sudden cardiac . Patient states understanding. Will further discuss with Dr.John Conte. (2) A-fib Status: Acute Per cardiology: -Knowm history of a.fib s/p ablation, however unsure after records have been reviewed if patient underwent a.fib ablation or VT ablation x2. -No atrial fibrillation appreciated per tele or ECG. -[id number] score 1 (HTN). On ASA at home. -On beta yehuda. -Will obtain previous records from former actuary from first ablation. Qualifiers: Atrial fibrillation type: paroxysmal Qualified Code(s): I48.0 - Paroxysmal atrial fibrillation Discussion w patient/family: The assessment and plan as outlined above was discussed with the patient who expressed understanding and agreement. All questions were answered. Thank you for involving us in the care of your patient. Please call with any questions. Discussed and reviewed with . History of Present Illness Consult date: 08/12/17 Requesting physician: Jeffrey Jha Consult reason: VT Chief complaint: "a.fib," racing heart History of present illness: Mr. Ruiz is a 57 year old male with a relevant past medical history of atrial fibrillation s/p ablation, HTN, hyperlipidemia. Patient denies history of ventricular tachycardia, however per review of records from EP lab at [place], patient has history of non-sustained ventricular tachycardia and underwent successful VT ablation 07/18/2010. Patient states his symptoms started when he was out shoveling snow this weekend. States he felt his "heart racing." States he felt like he was in a.fib, however patient states this time, he felt like he was going to pass out. Patient states he did not lose consciousness. Patient denies recurrent symptoms since admission. Past Med Surg Social Fam HX - Past Medical History Attestation: Yes The following information was validated with the patient. Source: patient, old records reviewed Medical history: atrial fibrillation, cancer, hypertension Psychiatric history: no psych history - Past Surgical History Surgical History: colectomy - Social History Smoking Status: Never smoker Smokeless Tobacco Status: No Alcohol use: occasionally Drug use: none - Family History Father Living Status: Hx Family Cardiac Disorders: Yes (LA) Brother Hx Family Cardiac Disorders: Yes (Heart valve replacement) Sister Hx Family Cardiac Disorders: Yes (AFib) Medications and Allergies Aspirin [Lo-Dose Aspirin EC] 81 mg PO DAILY 08/11/17 [History] Losartan/Hydrochlorothiazide [Losartan-Hctz 100-12.5 mg Tab] 1 tab PO DAILY [History] amLODIPine [Norvasc] 5 mg PO DAILY 08/11/17 [History] Metoprolol XL (24 HR) Succ [Toprol Xl] 25 mg PO DAILY 60 Days #60 tab.er.24h [Rx] 3 Allergy/AdvReac Type Severity Reaction Status Date / Time No Known Allergies Allergy Verified 08/10/17 22:12 All Systems Review: A 10-system review of systems was performed and is negative for pertinent findings except as documented above in the HPI. - Cardiovascular Cardiovascular: as per HPI, rapid heart rate Physical Examination Vital Signs, Last 4 Hours Temp Pulse Resp BP Pulse Ox 08/12/17 11:34 98.5 F 73 14 141/89 97 General: Conversant, No Apparent Distress HEENT: Atraumatic, Normocephaly, Mucus Membranes Moist Neck: No JVD, Normal carotid pulses Cardiac: Reg Rate and Rhythm, Normal S1 and S2, No Murmur Lungs: Normal Breath Sounds, No Wheeze, Rales, Rhonchi Neuro: Alert and responsive, No focal deficits noted Abdomen: Soft, Non-Tender Skin: No rashes noted on visualized skin Musculoskeletal: No Chest Wall Tenderness Extremities: No Clubbing, No Cyanosis, No Edema, Normal Pulses Results 08/12/17 06:00 08/12/17 06:00 Lab Results Current Medications Acetaminophen (Tylenol) 650 mg PO Q6HR PRN PRN Reason: Mild Pain (1-3) Stop: 02/10/18 01:17 Amlodipine Besylate (Norvasc) 5 mg PO DAILY KACIE PRN Reason: Protocol Stop: 02/10/18 09:01 Last Admin: 08/12/17 08:57 Dose: 5 mg Aspirin (Aspirin Ec) 81 mg PO DAILY [facility] Stop: 02/10/18 11:31 Last Admin: 08/12/17 08:57 Dose: 81 mg Heparin Sodium (Porcine) (Heparin) 5,000 unit SQ Q12HCO [facility] Stop: 02/10/18 06:01 Last Admin: 08/12/17 05:27 Dose: 5,000 unit Sodium Chloride (0.9 % Sodium Chloride) 1,000 mls @ 100 mls/hr IVC .Q10H [facility] Stop: 02/10/18 11:31 Last Infusion: 08/12/17 09:02 Dose: 100 mls/hr Losartan Potassium (Cozaar) 100 mg PO DAILY [facility] Stop: 02/10/18 09:01 Last Admin: 08/12/17 08:58 Dose: 100 mg Metoprolol Succinate (Toprol Xl) 25 mg PO DAILY [facility] Stop: 02/10/18 09:31 Last Admin: 08/12/17 08:57 Dose: 25 mg Naloxone HCl (Narcan) 0.4 mg IVP Q2MIN PRN PRN Reason: Opioid Reversal Stop: 02/10/18 01:17 Laboratory Tests 08/10/17 08/10/17 08/11/17 22:24 22:24 03:34 Hgb Potassium Creatinine Magnesium 2.1 Troponin I < 0.03 TSH 3.250 08/12/17 08/12/17 06:00 06:00 Hgb 13.2 Potassium 3.9 Creatinine 1.03 Magnesium Troponin I TSH - Imaging and Cardiology Chest Xray: report reviewed Echo: report reviewed Cardiac cath: report reviewed - EKG Interpretation EKG results cardiology: personally reviewed (ECG with ventricular tachycardia.) , other (Telemetry reviewed with average HR previous 12 hours noted to be 62, sinus rhythm. Rare PVCs and rare PACs noted.) Consult Discharge Plan - Plan Additional Instructions: Follow-up appointments: If there is not an appointment listed below, please call your physician and schedule a follow-up appointment. If you have congestive heart failure and your symptoms return, make an appointment with your physician. Medication List: Carry an up to date list of medications you are taking at all time. We have given you an updated medication list including any new medications that you have been prescribed. Please provide that list to your primary provider Symptoms: If your condition changes or you experience any of the following symptoms, notify your physician immediately: Unusual or worsening pain, fever, persistent nausea and vomiting, bleeding, increase in swelling (especially in your legs), sudden weight gain, extreme dizziness, chest pain, increased drainage or redness from a wound or incision. Go to the emergency department if you experience a problem with breathing. If you experience any of the warning signs for stroke: Sudden numbness or weakness of the face, arm or leg; especially on one side of the body, sudden confusion, trouble speaking or understanding, sudden trouble seeing in one or both eyes, sudden trouble walking, dizziness, loss of balance or coordination, sudden sever headache with no cause; Call 911 or go to the emergency room. Stroke is a medical emergency. Some risk factors for stroke: Age, cigarette smoking, diabetes, excessive alcohol consumption, family history , high blood pressure, overweight, physical inactivity, prior stroke, heart attack, diagnosis of carotid artery stenosis or other artery disease. If you smoke, STOP: Smoking or tobacco use significantly increases your risk of heart and lung disease. Your chance of disease greatly increases if you continue to smoke. For more information, call the [place] tobacco quit line for smoking cessation 5 QUIT-NOW ( ) Referrals: Desean Jones DO [Family Provider] - [facility],PCP [Primary Care Provider] - 08/21/17 9:45 am Prescriptions: Metoprolol XL (24 HR) Succ [Toprol Xl] 25 mg PO DAILY 60 Days #60 tab.er.24h <Donnie Conte - Last Filed: 08/13/17 09:32> Date of Encounter: 08/13/17 - Attending Attestation I have personally performed a face to face evaluation on this patient. I have reviewed and agree with the care plan. History and Exam by me shows: Recurrent outflow tract VT. He is S/P two ablations. Would recommend medical mgmt. with [employer] which seems to be controlling episodes currently. Will follow up as outpt. to discuss attempt at repeat ablation if has recurrent episodes. Assessment and Plan Discussion w patient/family: The assessment and plan as outlined above was discussed with the patient and/or family members who expressed understanding and agreement. All questions were answered. Thank you for involving us in the care of your patient. Please call with any questions. History of Present Illness History of present illness: Mr. Ruiz is a 57 year old male All Systems Review: A 10-system review of systems was performed and is negative for pertinent findings except as documented above in the HPI. Results 08/12/17 06:00 08/12/17 06:00
--- NOTE | 2017-08-12 13:25 | Event Note ---
Date of Encounter: 08/12/17 Time of Encounter: 13:22 Findings of cardiology workup reviewed. TTE - structurally normal heart, normal LV function. LHC minimal CAD. Good response to BB therapy thus far. I will defer definitive management of this arrhythmia related issue to EP. Consult in progress.
[2017-08-12 16:36] VITALS: BP 123/80
--- NOTE | 2017-08-12 19:13 | Discharge Summary ---
Date of Encounter: 08/12/17 Time of Encounter: 19:10 - Discharge Diagnosis (1) HTN (hypertension) Priority: Secondary Status: Chronic Qualifiers: Hypertension type: essential hypertension Qualified Code(s): I10 - Essential (primary) hypertension (2) A-fib Priority: Secondary Status: Chronic Qualifiers: Atrial fibrillation type: paroxysmal Qualified Code(s): I48.0 - Paroxysmal atrial fibrillation - Discharge Medications Prescriptions: Metoprolol XL (24 HR) Succ [Toprol Xl] 25 mg PO DAILY 60 Days #60 tab.er.24h Home Medications: Aspirin [Lo-Dose Aspirin EC] 81 mg PO DAILY 08/11/17 [History] Losartan/Hydrochlorothiazide [Losartan-Hctz 100-12.5 mg Tab] 1 tab PO DAILY [History] amLODIPine [Norvasc] 5 mg PO DAILY 08/11/17 [History] Metoprolol XL (24 HR) Succ [Toprol Xl] 25 mg PO DAILY 60 Days #60 tab.er.24h [Rx] Allergies/Adverse Reactions: 3 Allergy/AdvReac Type Severity Reaction Status Date / Time No Known Allergies Allergy Verified 08/10/17 22:12 Procedures/tests Complete & Pending: Procedures Performed prior 72 hours Category Date Time Status CL Cardiac Catheterization [CL] Routine [place] Professor 08/11/17 11:18 Completed ECG 12 lead ECG [ECG] Routine Y 08/10/17 23:14 Completed ECG 12 lead ECG [ECG] Routine Y 08/10/17 23:15 Completed EV echocardiogram Routine Y 08/11/17 01:23 Completed Date of admission: 08/11/17 01:21 Primary care physician: [facility] Consults: 08/12/17 12:15 Consult to Electrophysiology (EP) [CONS] Routine Consulting Provider: Electrophysiology [facility] Reason for Consult: VT Call Completed: Yes Discharging clinician: Wayne Horn - Patient Status Disposition: Home, Self-Care Condition: Good - Discharge Instructions Follow Up With: Desean Jones DO [Family Provider] - [facility] [Primary Care Provider] - 08/21/17 9:45 am Hospital course: Mr. Ruiz is a 57 year old male - Time Spent with Patient Total time spent providing and/or coordinating discharge services: - Constitutional Vitals: Temp Pulse Resp BP Pulse Ox 98.3 F 66 16 123/80 96 08/12/17 16:34 08/12/17 16:34 08/12/17 16:34 08/12/17 16:34 08/12/17 16:34 General appearance: Present: A&O X 3, no acute distress, answers questions appropriately
== END 2017-08-12 20:58 | disposition home or self-care (01) ==
LOC: UNDODISOB → EMEROO 22:11 → 2NNU 22:11 → SUATTDRO 08-11 01:21 → 2NNU 08-11 02:06 → UNDODISOB 08-12 20:07
PROVIDERS: ADMIT Internal Medicine; ATTEND Hospitalist